=== PATIENT | female | born 1940 | race Two or more races ===

== ENCOUNTER 2018-09-26 15:55 | Inpatient (IN) | payer OTHER, MEDICAID ==
[~2018-09-26] VITALS: Ht 152.4 cm; Wt 56.4 kg
[2018-09-26] MEDS ORDERED: FURO-152 PO (15:58)
[2018-09-26] MEDS ORDERED: ONDANSETRON HCL 4MG/2ML INJ IV STA (16:15)
[2018-09-26] MEDS ORDERED: MORPHINE SULFATE 4 MG/ML CPJ (NOT FOR IM USE) IV STA (16:15)
[2018-09-26] MEDS ORDERED: SODIUM CHLORIDE 0.9% 1,000 ML IV ONE (16:15)
[2018-09-26 17:20] LABS: BASOPHILS % 0.6 % (0.0-2.0); EOSINOPHILS % 2.8 % (0.0-5.0); HEMATOCRIT. 30.2 % (36.0-48.0); HEMOGLOBIN. 10.2 g/dL (12.0-16.0); LYMPHOCYTES % 22.7 % (20.0-50.0); MEAN CORPUSCULAR HEMOGLOBIN 31.9 pg (28.0-32.0); MEAN CORPUSCULAR VOLUME 94.6 fL (81.0-99.0); MEAN PLATELET VOLUME 7.9 fl (7.4-10.4); MONOCYTES % 8.3 % (2.0-8.0); NEUTROPHILS % 65.6 % (40.0-76.0); PLATELET 108 x1000/uL (130-400); RED BLOOD CELL COUNT 3.19 mill/uL (4.2-5.4); RED CELL DISTRIBUTION WIDTH 15.4 % (11.6-14.6)
[2018-09-26 17:29] LABS: CHLORIDE 108 mEq/L (98-107)
[2018-09-26 17:37] LABS: INR 1.2; PARTIAL THROMBOPLASTIN TIME 20.3 sec (23.4-31.0); PROTHROMBIN TIME 11.6 sec (9.1-11.1)
[2018-09-26 18:38] LABS: CLARITY URINE CLOUDY (CLEAR); COLOR URINE YELLOW (YELLOW); KETONES URINE NEGATIVE (NEGATIVE); LEUKOCYTE ESTERASE URINE 3+ (NEGATIVE); NITRITE URINE POSITIVE (NEGATIVE); OCCULT BLOOD URINE 1+ (NEGATIVE); PH URINE 5.5 (4.5-8.0); PROTEIN URINE TRACE (NEGATIVE); SPECIFIC GRAVITY URINE 1.007 (1.005-1.030); UROBILINOGEN URINE 0.2 E.U./dL (0.2-1.0)
[2018-09-26] MEDS ORDERED: KETOROLAC 15MG/ML VIAL IV ONE (19:30)
[2018-09-26] MEDS ORDERED: CEFTRIAXONE 1 G PREMIX 50 ML IV ONE (19:30)
[2018-09-26] MEDS: SODIUM CHLORIDE 0.45% 1,000 ML IV SCH (21:42)
[2018-09-26] MEDS ORDERED: ONDANSETRON HCL 4MG/2ML INJ IV PRN (21:45)
[2018-09-26] MEDS ORDERED: DOCUSATE SODIUM 100MG CAPSULE PO PRN (21:45)
[2018-09-26] MEDS ORDERED: HYDROCODONE/ACETAMINOPHEN 5/325MG TABLET PO PRN (21:45)
[2018-09-26] MEDS ORDERED: GUAIFENESIN 200MG/10ML SUGAR FREE UDC PO PRN (21:45)
[2018-09-26] MEDS ORDERED: ACETAMINOPHEN 325MG TABLET PO PRN (21:45)
[2018-09-26] MEDS ORDERED: PIPERACILLIN/TAZ 3.375G PREMIX 50 ML IV SCH (21:45)
[2018-09-26] MEDS ORDERED: CLONIDINE 0.1MG TABLET PO PRN (21:45)
[2018-09-26] MEDS ORDERED: LORAZEPAM 2MG/ML CPJ IV PRN (21:45)
[2018-09-26] MEDS ORDERED: MAGNESIUM/ALUMINUM HYDROXIDE/SIMETHICONE 30ML UDC PO PRN (21:45)
[2018-09-26] MEDS ORDERED: PIPERACILLIN/TAZ 2.25G PREMIX 50 ML IV NR (23:00)
[2018-09-27 05:00] VITALS: BP 128/49
[2018-09-27] MEDS ORDERED: ASCO125T PO (06:10)
[2018-09-27] MEDS ORDERED: CARV3.1242 PO (06:14)
[2018-09-27] MEDS ORDERED: ERGO400T7 PO (06:14)
[2018-09-27] MEDS ORDERED: LOSA50TA20 PO (06:15)
[2018-09-27] MEDS ORDERED: FERR220S12 PO (06:17)
[2018-09-27] MEDS ORDERED: FERR325T6 PO (06:17)
[2018-09-27] MEDS ORDERED: ATOR20TA65 PO (06:18)
[2018-09-27] MEDS ORDERED: DONE10TA43 PO (06:20)
[2018-09-27] MEDS ORDERED: FEBU40TA PO (06:28)
[2018-09-27 08:00] VITALS: BP 124/44
[2018-09-27] MEDS ORDERED: ENOXAPARIN 30MG/0.3ML SYR SUBCUT SCH (09:00)
[2018-09-27] MEDS: AMLODIPINE 10MG TABLET PO SCH (09:21)
[2018-09-27 09:42] LABS: BASOPHILS % 0.7 % (0.0-2.0); EOSINOPHILS % 3.3 % (0.0-5.0); HEMATOCRIT. 28.6 % (36.0-48.0); HEMOGLOBIN. 9.5 g/dL (12.0-16.0); LYMPHOCYTES % 27.5 % (20.0-50.0); MEAN CORPUSCULAR HEMOGLOBIN 31.8 pg (28.0-32.0); MEAN CORPUSCULAR VOLUME 95.1 fL (81.0-99.0); MEAN PLATELET VOLUME 7.5 fl (7.4-10.4); MONOCYTES % 7.6 % (2.0-8.0); NEUTROPHILS % 60.9 % (40.0-76.0); PLATELET 87 x1000/uL (130-400); RED CELL DISTRIBUTION WIDTH 15.4 % (11.6-14.6)
[2018-09-27] MEDS: SODIUM CHLORIDE 0.45% 1,000 ML IV SCH (09:46)
[2018-09-27] MEDS: PIPERACILLIN/TAZ 2.25G PREMIX 50 ML IV SCH ×2 (09:47→17:50)
[2018-09-27 09:50] LABS: CHLORIDE 112 mEq/L (98-107)
[2018-09-27 12:00] VITALS: BP 118/35
[2018-09-27] MEDS ORDERED: ERGOCALCIFEROL 50000UNITS CAPSULE PO SCH (13:15)
[2018-09-27] MEDS ORDERED: DEXTROSE 50% WATER 50ML SYRINGE IV PRN (13:30)
[2018-09-27 14:48] VITALS: BP 95/29
[2018-09-27] MEDS: LOSARTAN POTASSIUM 50 MG TABLET PO SCH (14:50)
[2018-09-27] MEDS: CARVEDILOL 3.125 MG TABLET PO SCH ×2 (14:51→22:51)
[2018-09-27] MEDS: ASCORBIC ACID 500 MG TABLET PO SCH ×2 (14:52→22:51)
[2018-09-27] MEDS: FERROUS SULFATE 325MG TABLET PO SCH ×2 (14:56→18:47)
[2018-09-27 16:00] VITALS: BP 114/42
[2018-09-27] MEDS: BLOOD SUGAR DIAGNOSTIC STRIP TEST SCH ×2 (17:43→21:41)
[2018-09-27] MEDS: INSULIN LISPRO 100 UNITS/ML SUBCUT SCH ×2 (18:27→21:43)
[2018-09-27] MEDS: ULORIC 40MG PO SCH (18:48)
[2018-09-27] MEDS: ATORVASTATIN CALCIUM 20MG TABLET PO SCH (21:40)
[2018-09-27] MEDS: DONEPEZIL HCL 10MG TABLET PO SCH (21:41)
[2018-09-28] VITALS: BP 111/50
[2018-09-28] MEDS: PIPERACILLIN/TAZ 2.25G PREMIX 50 ML IV SCH ×3 (00:34→17:07)
[2018-09-28 04:00] VITALS: BP 116/60
[2018-09-28] MEDS: BLOOD SUGAR DIAGNOSTIC STRIP TEST SCH ×4 (06:51→21:34)
[2018-09-28] MEDS: INSULIN LISPRO 100 UNITS/ML SUBCUT SCH ×4 (07:50→21:00)
[2018-09-28 08:00] VITALS: BP 108/48
[2018-09-28] MEDS: FERROUS SULFATE 325MG TABLET PO SCH ×2 (09:14→17:07)
[2018-09-28] MEDS: ASCORBIC ACID 500 MG TABLET PO SCH ×2 (09:14→21:34)
[2018-09-28] MEDS: ULORIC 40MG PO SCH (09:14)
[2018-09-28] MEDS: AMLODIPINE 10MG TABLET PO SCH (09:15)
[2018-09-28] MEDS: CARVEDILOL 3.125 MG TABLET PO SCH ×2 (09:15→21:00)
[2018-09-28] MEDS: LOSARTAN POTASSIUM 50 MG TABLET PO SCH (09:15)
[2018-09-28 12:00] VITALS: BP 109/56
[2018-09-28 12:47] LABS: BASOPHILS % 0.6 % (0.0-2.0); EOSINOPHILS % 2.8 % (0.0-5.0); HEMOGLOBIN. 9.2 g/dL (12.0-16.0); LYMPHOCYTES % 30.4 % (20.0-50.0); MEAN CORPUSCULAR HEMOGLOBIN 31.8 pg (28.0-32.0); MEAN CORPUSCULAR VOLUME 96.2 fL (81.0-99.0); MEAN PLATELET VOLUME 7.8 fl (7.4-10.4); MONOCYTES % 8.2 % (2.0-8.0); PLATELET 77 x1000/uL (130-400); RED BLOOD CELL COUNT 2.91 mill/uL (4.2-5.4); RED CELL DISTRIBUTION WIDTH 15.6 % (11.6-14.6)
[2018-09-28 16:00] VITALS: BP 118/60
[2018-09-28] MEDS: SODIUM CHLORIDE 0.45% 1,000 ML IV SCH ×2 (17:09→23:42)
[2018-09-28] MEDS ORDERED: SODIUM POLYSTYRENE SULFONATE 15 G/60 ML BOT PO NR ×2 (18:00)
[2018-09-28 20:48] VITALS: BP 103/48
[2018-09-28] MEDS: DONEPEZIL HCL 10MG TABLET PO SCH (21:34)
[2018-09-28] MEDS: ATORVASTATIN CALCIUM 20MG TABLET PO SCH (21:34)
[2018-09-29 00:29] VITALS: BP 97/41
[2018-09-29] MEDS: PIPERACILLIN/TAZ 2.25G PREMIX 50 ML IV SCH ×2 (01:21→08:28)
[2018-09-29 04:49] VITALS: BP 96/41
[2018-09-29] MEDS: BLOOD SUGAR DIAGNOSTIC STRIP TEST SCH ×2 (06:11→12:20)
[2018-09-29 07:03] LABS: BASOPHILS % 0.6 % (0.0-2.0); EOSINOPHILS % 2.9 % (0.0-5.0); HEMATOCRIT. 22.6 % (36.0-48.0); HEMOGLOBIN. 7.6 g/dL (12.0-16.0); LYMPHOCYTES % 30.6 % (20.0-50.0); MEAN CORPUSCULAR VOLUME 95.3 fL (81.0-99.0); MEAN PLATELET VOLUME 7.8 fl (7.4-10.4); MONOCYTES % 7.1 % (2.0-8.0); NEUTROPHILS % 58.8 % (40.0-76.0); PLATELET 70 x1000/uL (130-400); RED BLOOD CELL COUNT 2.38 mill/uL (4.2-5.4); RED CELL DISTRIBUTION WIDTH 15.7 % (11.6-14.6)
[2018-09-29] MEDS: INSULIN LISPRO 100 UNITS/ML SUBCUT SCH ×2 (07:50→12:50)
[2018-09-29 08:00] VITALS: BP 91/38
[2018-09-29] MEDS: ASCORBIC ACID 500 MG TABLET PO SCH (08:28)
[2018-09-29] MEDS: FERROUS SULFATE 325MG TABLET PO SCH (08:28)
[2018-09-29] MEDS: ULORIC 40MG PO SCH (08:28)
[2018-09-29] MEDS: AMLODIPINE 10MG TABLET PO SCH (08:39)
[2018-09-29] MEDS: CARVEDILOL 3.125 MG TABLET PO SCH (08:39)
[2018-09-29 11:04] LABS: BG BASE EXCESS -12.2 mmol/L (-2.0-2.0); BG CARBOXYHEMOGLOBIN 0.8 % (0.5-1.5); BG DEOXYHEMOGLOBIN 3.8 % (0.0-5.0); BG HCO3 ACT 13.9 mmol/L (22.0-26.0); BG METHEMOGLOBIN 0.3 % (0.0-1.5); BG OXYGEN SATURATION 96.2 % (92.0-98.5); BG OXYHEMOGLOBIN 95.1 % (94.0-97.0); BG PCO2 32.5 mmHg (35.0-45.0); BG PH 7.249 (7.350-7.450); BG SAMPLE SITE RIGHT BRACHIAL; BG TOTAL HEMOGLOBIN 8.5 g/dL (12.0-18.0); BG VENT MODE ROOM AIR
[2018-09-29 11:22] VITALS: BP 91/38
[2018-09-29 12:00] VITALS: BP 114/48
[2018-09-29 12:09] LABS: HEMATOCRIT 24.4 % (36.0-48.0); HEMOGLOBIN 8.1 g/dL (12.0-16.0)
[2018-09-29] MEDS ORDERED: CITRIC ACID/SODIUM CITRATE SOLN 30ML UDC PO SCH (13:00)
[2018-09-29] MEDS: SODIUM CHLORIDE 0.45% 1,000 ML IV SCH (13:56)
[2018-09-29] MEDS ORDERED: EPOETIN ALFA 10000UNITS/ML VIAL SUBCUT SCH (21:00)
== END 2018-09-29 16:40 | disposition home or self-care (01) | DRG 683 ==
LOC: ER 15:55 → 6WST 19:59 → EDBEDREQ 20:03 → EDBEDREQTM 20:03 → SUPCPDRO 21:41 → ENRESERV 09-27 03:25
PROVIDERS: ADMIT Hospitalist; ATTEND Hospitalist
DX: N17.9 Acute kidney failure, unspecified (principal); I13.0 Hypertensive heart and chronic kidney disease with heart failure and stage 1 through stage 4 chronic kidney disease, or unspecified chronic kidney disease; N39.0 Urinary tract infection, site not specified; N18.9 Chronic kidney disease, unspecified; D69.6 Thrombocytopenia, unspecified; M10.9 Gout, unspecified; D64.9 Anemia, unspecified; Z90.49 Acquired absence of other specified parts of digestive tract; I50.9 Heart failure, unspecified; E87.5 Hyperkalemia; E78.5 Hyperlipidemia, unspecified; E11.22 Type 2 diabetes mellitus with diabetic chronic kidney disease; Z79.899 Other long term (current) drug therapy
CPT/HCPCS: 36415; 36600; 71045; 74176; 80048; 82375; 82805; 82962; 83605; 83880; 84484; 85014; 85018; 87077; 87186; 93005; 96365; 96375; 99285; C1893; J0696; J1650; J1815; J1885; J2270; J2405; J2543; J7030